=== PATIENT | male | born 1965 | race African-American/Black ===

== ENCOUNTER 2022-01-10 13:33 | Outpatient (CLI) | payer OTHER ==
[2022-01-10 15:39] LABS: #Basophils 0.1 10x3/uL (0.0-0.2); #Eosinphils 0.1 10x3/uL (0.0-0.5); #Monocytes 0.4 10x3/uL (0.0-1.1); #Neutrophils 2.3 10x3/uL (1.5-8.4); %Eosinophils 2.7 % (0.0-6.0); %Lymphocytes 40.7 % (18.0-47.0); %Monocytes 8.7 % (0.0-10.0); %Neutrophils 46.7 % (40.0-75.0); Hemoglobin 16.4 g/dL (13.5-17.5); Mean Corpuscular HGB CONC 32.2 g/dL (32.0-36.0); Mean Corpuscular Hemoglobin 24.3 pg (27.0-33.0); Mean Corpuscular Volume 75.5 fl (81.2-95.1); Mean Platelet Volume 10.4 fl (7.4-10.4); Platelet Count 196 10x3/uL (150-450); RBC Distribution Width 18.1 % (11.5-14.5); Red Blood Cell (RBC) Count 6.74 10x6/uL (4.32-5.72); White Blood Cell (WBC) Count 4.8 10x3/uL (3.5-10.5)
[2022-01-10 15:52] LABS: Prothrombin Time 10.5 sec (9.5-12.1)
[2022-01-10 16:00] LABS: Anion Gap 16 mmol/L (10-20); BUN (Urea Nitrogen) 16 mg/dL (8.4-25.7); Calc. Creatinine Clearance 0 mL/min (70-130); Calcium 10.3 mg/dL (7.8-10.44); Carbon Dioxide 26 mmol/L (22-29); Chloride 101 mmol/L (98-107); Glucose 103 mg/dL (70-105); Potassium 4.3 mmol/L (3.5-5.1); Sodium 139 mmol/L (136-145)
[2022-01-11 02:04] LABS: SARS-CoV-2 PCR by NAA Not Detected (NotDetected)
== END 2022-01-10 13:34 | disposition home or self-care (01) ==
LOC: LABBT 13:33
PROVIDERS: ATTEND Orthopaedic Surgery
DX: Z01.818 Encounter for other preprocedural examination (principal); M16.12 Unilateral primary osteoarthritis, left hip; Z20.822 Contact with and (suspected) exposure to COVID-19
CPT/HCPCS: 80048; 85025; 85610; 87081; 93005; 93010; U0003; U0005

== ENCOUNTER 2022-01-15 05:33 | Inpatient (IN) | payer OTHER ==
[2022-01-10 15:55] VITALS: BMI 38.7
[2022-01-15] MEDS ORDERED: Sodium Chloride 0.9% 100 ML ONE ×2 (05:56→06:58)
[2022-01-15] MEDS ORDERED: Tranexamic Acid 1,000 MG/10 ML VIAL ONE (05:56)
[2022-01-15] MEDS ORDERED: VANCOMYCIN 2 GRAM/500 ML BAG 2 GM in Premix Bag 1 BAG IVPB SCH ×2 (06:15→19:00)
[2022-01-15] MEDS ORDERED: fentaNYL Citrate/PF 100 MCG/2 ML SYRINGE ONE ×2 (06:16→07:54)
[2022-01-15] MEDS ORDERED: Midazolam HCl 2 mg/2 ml Vial ONE (06:16)
[2022-01-15] MEDS ORDERED: Lidocaine 1.5% w/Epi 1:200K 30 ML VIAL (Epid Use) ONE (06:42)
[2022-01-15] MEDS ORDERED: Lidocaine 1% PF 5 ML VIAL ONE (06:42)
[2022-01-15] MEDS ORDERED: Glycopyrrolate 0.2 MG/ML 5 ML SYRINGE ONE (06:42)
[2022-01-15] MEDS ORDERED: ePHEDrine 50 MG/ML VIAL ONE (06:42)
[2022-01-15] MEDS ORDERED: PROPOFOL 200 MG/20 ML VIAL ONE (06:42)
[2022-01-15] MEDS ORDERED: Rocuronium Bromide 10 MG/ML (10ML VIAL) ONE (06:42)
[2022-01-15] MEDS ORDERED: PHENYLEPHRINE-NS 100 MCG/ML 10 ML SYRINGE ONE (06:42)
[2022-01-15] MEDS ORDERED: CEFAZOLIN 2 GM VIAL ONE (06:58)
[2022-01-15] MEDS ORDERED: Moisturizing Cream (Eucerin) 113 GM JAR TOP PRN (07:30)
[2022-01-15] MEDS ORDERED: Promethazine HCl 25 MG/ML VIAL IM PRN ×2 (07:30→08:19)
[2022-01-15] MEDS ORDERED: HYDROcodone/Acetaminophen 5/325 mg Tablet PO PRN (07:30)
[2022-01-15] MEDS ORDERED: Ketorolac Tromethamine 30 MG/ML VIAL IVP PRN (07:30)
[2022-01-15] MEDS ORDERED: Zolpidem Tartrate 5 MG TAB PO PRN (07:30)
[2022-01-15] MEDS ORDERED: diphenhydrAMINE 25 MG CAP PO PRN (07:30)
[2022-01-15] MEDS ORDERED: diphenhydrAMINE 50 MG/ML VIAL IM PRN (07:30)
[2022-01-15] MEDS ORDERED: Naloxone HCl 0.4 mg/ml Vial IV PRN (07:30)
[2022-01-15] MEDS ORDERED: Promethazine HCl 25 MG SUPP PR PRN (07:30)
[2022-01-15] MEDS ORDERED: Naloxone HCl 0.4 mg/ml Vial IVP PRN (07:30)
[2022-01-15] MEDS ORDERED: Ondansetron PF 4 MG/2 ML Vial IVP PRN (07:30)
[2022-01-15] MEDS ORDERED: traMADol HCl 50 MG TAB PO PRN ×2 (07:30)
[2022-01-15] MEDS ORDERED: diphenhydrAMINE 50 MG/ML VIAL IVP PRN (07:30)
[2022-01-15] MEDS ORDERED: Bupivacaine 0.25% 10 ML VIAL EPIDURAL PRN (07:30)
[2022-01-15] MEDS ORDERED: Promethazine HCl 25 MG/ML VIAL IVPB PRN (08:19)
[2022-01-15] MEDS ORDERED: Ondansetron HCl/PF 4 MG/2 ML Vial IVP PRN (08:19)
[2022-01-15] MEDS ORDERED: Ropivacaine 0.2% HCl/PF 20 ML ONE (09:24)
[2022-01-15] MEDS ORDERED: SUGAMMADEX SODIUM 200 MG/2 ML VIAL ONE (09:27)
[2022-01-15] MEDS ORDERED: Fentanyl 250 MCG/5 ML VIAL ONE (09:59)
[2022-01-15] MEDS ORDERED: Acetaminophen 325 MG TAB PO PRN (10:17)
[2022-01-15] MEDS ORDERED: Meperidine HCl/PF 25 MG/ML VIAL ONE (11:52)
[2022-01-15] MEDS ORDERED: Promethazine HCl 25 MG/ML VIAL ONE (11:52)
[2022-01-15] MEDS: Sodium Chloride 0.9% 1,000 ML IV SCH ×2 (17:00→20:54)
[2022-01-15] MEDS: CEFAZOLIN 2 GM in Sodium Chloride 0.9% 100 ML IVPB SCH ×2 (17:01→22:40)
[2022-01-15] MEDS: HYDROcodone/Acetaminophen 5/325 mg Tablet PO PRN ×2 (18:02→22:40)
[2022-01-15] MEDS: Ferrous Gluconate 324 MG TAB PO SCH (20:58)
[2022-01-15] MEDS: Aspirin 81 mg Enteric Coated Tablet PO SCH (20:58)
[2022-01-15] MEDS: Senokot S 8.6-50 MG TAB PO SCH (20:58)
[2022-01-15] MEDS: fentaNYL Citrate/PF 500 MCG, Bupivacaine 0.75% 10 ML in Sodium Chloride 0.9% 80 ML EPIDURAL SCH (23:53)
[2022-01-16] MEDS: HYDROcodone/Acetaminophen 5/325 mg Tablet PO PRN ×3 (05:12→20:00)
[2022-01-16] MEDS: Sodium Chloride 0.9% 1,000 ML IV SCH ×2 (05:20→16:39)
[2022-01-16 06:02] LABS: Hemoglobin 13.4 g/dL (14.0-18.0); Mean Corpuscular Hemoglobin 25.4 pg (27.0-31.0); Mean Platelet Volume 8.6 fL (7.4-10.4); Platelet Count 141 thou/uL (130-400); Red Blood Cell (RBC) Count 5.28 mill/uL (4.70-6.10); White Blood Cell (WBC) Count 6.5 thou/uL (4.8-10.8)
[2022-01-16 06:24] LABS: Anion Gap 8 mmol/L (10-20); BUN (Urea Nitrogen) 12 mg/dL (8.4-25.7); Calc. Creatinine Clearance 120 mL/min (70-130); Calcium 8.6 mg/dL (7.8-10.44); Carbon Dioxide 27 mmol/L (22-29); Chloride 104 mmol/L (98-107); Glucose 152 mg/dL (70-105); Potassium 3.9 mmol/L (3.5-5.1); Sodium 135 mmol/L (136-145)
[2022-01-16] MEDS: Ferrous Gluconate 324 MG TAB PO SCH ×2 (08:54→20:00)
[2022-01-16] MEDS: Aspirin 81 mg Enteric Coated Tablet PO SCH ×2 (08:54→20:00)
[2022-01-16] MEDS: Senokot S 8.6-50 MG TAB PO SCH ×2 (08:54→20:00)
[2022-01-16] MEDS: Multivitamin W/ Minerals 1 TAB PO SCH (08:55)
[2022-01-16] MEDS ORDERED: Dextrose 5% in Water 1,000 ML IV PRN (12:58)
[2022-01-16] MEDS ORDERED: Dextrose 50% Abboject 50 ML SYRINGE SLOW IVP PRN (12:58)
[2022-01-16] MEDS ORDERED: Insulin Regular 300 UNITS/3 ML VIAL SC PRN ×2 (12:58)
[2022-01-16] MEDS ORDERED: Polyethylene Glycol 3350 17 GM Packet PO PRN (12:59)
[2022-01-16] MEDS ORDERED: Ketorolac Tromethamine 30 MG/ML VIAL ONE (15:51)
[2022-01-16] MEDS: fentaNYL Citrate/PF 500 MCG, Bupivacaine 0.75% 10 ML in Sodium Chloride 0.9% 80 ML EPIDURAL SCH (15:55)
[2022-01-16] MEDS: metFORMIN 500 MG TAB PO SCH (16:00)
[2022-01-16] MEDS: Rosuvastatin 10 MG TAB PO SCH (20:00)
[2022-01-16] MEDS: Carvedilol 25 MG TAB PO SCH (20:00)
[2022-01-17] MEDS: Sodium Chloride 0.9% 1,000 ML IV SCH ×2 (00:39→14:44)
[2022-01-17] MEDS: fentaNYL Citrate/PF 500 MCG, Bupivacaine 0.75% 10 ML in Sodium Chloride 0.9% 80 ML EPIDURAL SCH (01:53)
[2022-01-17 08:58] LABS: Hemoglobin 12.3 g/dL (14.0-18.0); Mean Corpuscular HGB CONC 31.7 g/dL (32.0-36.0); Mean Corpuscular Hemoglobin 25.2 pg (27.0-31.0); Mean Corpuscular Volume 79.5 fL (78.0-98.0); Mean Platelet Volume 8.5 fL (7.4-10.4); Platelet Count 130 thou/uL (130-400); RBC Distribution Width 14.8 % (11.5-14.5); Red Blood Cell (RBC) Count 4.89 mill/uL (4.70-6.10); White Blood Cell (WBC) Count 7.5 thou/uL (4.8-10.8)
[2022-01-17] MEDS ORDERED: HYDROcodone/Acetaminophen 10/325 mg Tablet PO PRN ×2 (09:14→09:15)
[2022-01-17] MEDS ORDERED: Fentanyl 100 MCG/2 ML VIAL SLOW IVP PRN (09:15)
[2022-01-17] MEDS ORDERED: Bisacodyl 5 MG TAB PO PRN (11:18)
[2022-01-17] MEDS: Ferrous Gluconate 324 MG TAB PO SCH ×2 (11:19→21:25)
[2022-01-17] MEDS: Carvedilol 25 MG TAB PO SCH ×2 (11:20→21:27)
[2022-01-17] MEDS: Multivitamin W/ Minerals 1 TAB PO SCH (11:20)
[2022-01-17] MEDS: Amlodipine 10 MG TAB PO SCH (11:20)
[2022-01-17] MEDS: Losartan 25 MG TAB PO SCH (11:20)
[2022-01-17] MEDS: Aspirin 81 mg Enteric Coated Tablet PO SCH ×2 (11:20→21:25)
[2022-01-17] MEDS: Senokot S 8.6-50 MG TAB PO SCH ×2 (11:20→21:28)
[2022-01-17] MEDS: metFORMIN 500 MG TAB PO SCH ×2 (11:22→18:10)
[2022-01-17] MEDS ORDERED: Bisacodyl 5 MG TAB PO SCH (11:30)
[2022-01-17] MEDS: Rosuvastatin 10 MG TAB PO SCH (21:28)
[2022-01-18] MEDS: Sodium Chloride 0.9% 1,000 ML IV SCH (03:25)
[2022-01-18 06:16] LABS: Hemoglobin 12.2 g/dL (14.0-18.0); Mean Corpuscular HGB CONC 31.5 g/dL (32.0-36.0); Mean Corpuscular Hemoglobin 25.5 pg (27.0-31.0); Mean Corpuscular Volume 80.9 fL (78.0-98.0); Mean Platelet Volume 8.4 fL (7.4-10.4); Platelet Count 140 thou/uL (130-400); RBC Distribution Width 14.7 % (11.5-14.5); Red Blood Cell (RBC) Count 4.79 mill/uL (4.70-6.10); White Blood Cell (WBC) Count 7.3 thou/uL (4.8-10.8)
[2022-01-18] MEDS: Losartan 25 MG TAB PO SCH (08:22)
[2022-01-18] MEDS: Multivitamin W/ Minerals 1 TAB PO SCH (08:22)
[2022-01-18] MEDS: metFORMIN 500 MG TAB PO SCH (08:22)
[2022-01-18] MEDS: Carvedilol 25 MG TAB PO SCH (08:22)
[2022-01-18] MEDS: Aspirin 81 mg Enteric Coated Tablet PO SCH (08:22)
[2022-01-18] MEDS: Amlodipine 10 MG TAB PO SCH (08:22)
[2022-01-18] MEDS: Ferrous Gluconate 324 MG TAB PO SCH (08:22)
[2022-01-18] MEDS: Senokot S 8.6-50 MG TAB PO SCH (08:23)
[2022-01-18] MEDS ORDERED: HYDROcodone/Acetaminophen 10/325 mg Tablet PO PRN (11:07)
[2022-01-18 12:05] VITALS: BP 127/79; TEMP 98.2
== END 2022-01-18 16:00 | disposition home or self-care (01) | DRG 470 ==
LOC: SDC 05:33 → SJJU 10:17 → SDC 01-16 07:43 → SJJU 01-16 07:43 → OBSVTOIN 01-16 16:24
PROVIDERS: ADMIT Orthopaedic Surgery; ATTEND Orthopaedic Surgery
PROC: 0SRD0JZ Replacement of Left Knee Joint with Synthetic Substitute, Open Approach (ICD-10-PCS; principal; 2022-01-15)
DX: M16.12 Unilateral primary osteoarthritis, left hip (principal); E87.1 Hypo-osmolality and hyponatremia; Z20.822 Contact with and (suspected) exposure to COVID-19; E78.5 Hyperlipidemia, unspecified; M10.9 Gout, unspecified; N18.2 Chronic kidney disease, stage 2 (mild); E11.22 Type 2 diabetes mellitus with diabetic chronic kidney disease; I12.9 Hypertensive chronic kidney disease with stage 1 through stage 4 chronic kidney disease, or unspecified chronic kidney disease; Z79.899 Other long term (current) drug therapy; Z79.84 Long term (current) use of oral hypoglycemic drugs; Z90.49 Acquired absence of other specified parts of digestive tract; Z82.49 Family history of ischemic heart disease and other diseases of the circulatory system; Z83.3 Family history of diabetes mellitus
CPT/HCPCS: 36415; 36416; 72170; 80048; 85027; C1776; J1200; J1885; J2001; J2175; J2250; J2550; J2704; J2795; J3010; J3370; J3490; J7050